=== PATIENT | female | born 1980 | race Caucasian/White ===

== ENCOUNTER → 2018-09-25 | Outpatient (CLI) | payer MEDICAID | LOC: FIMAGING 08:15 | PROVIDERS: ATTEND Family Medicine | DX: S76.312A Strain of muscle, fascia and tendon of the posterior muscle group at thigh level, left thigh, initial encounter (principal) ==

== ENCOUNTER → 2018-11-11 | Outpatient (CLI) | payer MEDICAID | LOC: FIMAGING 11:57 | PROVIDERS: ATTEND Family Medicine | DX: J18.9 Pneumonia, unspecified organism (principal) ==

== ENCOUNTER → 2019-03-19 | Outpatient (CLI) | payer MEDICAID | LOC: BMCIMAGING 16:54 ==